=== PATIENT | female | born 1980 | race African-American/Black ===

== ENCOUNTER 2018-08-02 21:28 | Emergency (ER) | payer MEDICAID ==
[~2018-08-02] VITALS: Ht 154.9 cm; Wt 125.0 kg
[2018-08-02 21:36] VITALS: TEMP 99
[2018-08-02] MEDS ORDERED: PROZAC 20MG20 MG PO (22:04)
[2018-08-02] MEDS ORDERED: DESYREL 100MG100 MG PO (22:04)
[2018-08-02] MEDS ORDERED: PRINZIDE 12.5 M1 TAB PO (22:04)
[2018-08-02] MEDS ORDERED: LEVOXYL0.075 MG PO (22:05)
[2018-08-02 22:53] LABS: COLLECTION METHOD CLEAN CATCH
[2018-08-02 22:55] LABS: BASO % 0.2 % (0.0-2.0); EOS # 0.3 (0.0-0.7); EOS % 2.4 % (0-4.0); GRAN # 6.8 (1.4-6.5); GRAN % 65.6 % (42.2-75.2); HEMOGLOBIN 11.2 g/dl (12.5-16.0); LYMPH # 2.8 (1.2-3.4); LYMPH % 26.8 % (20.0-51.0); MEAN CELL VOLUME 84 fl (80.0-100.0); MEAN CORPUSCULAR HEMOGLOBIN 26 pg (27.0-31.0); MEAN CORPUSCULAR HGB CONC 30 g/dl (33.0-37.0); MEAN PLATELET VOLUME 10.5 fl (7.4-10.4); MONO # 0.5 (0.1-0.6); MONO % 4.6 % (1.7-9.3); PLATELET COUNT 247 K/mm3 (130-400); RED BLOOD COUNT 4.36 M/mm3 (4.10-5.30); REDCELL DISTRIBUTION WIDTH-CV 14.4 % (11.5-14.5)
[2018-08-02 22:58] LABS: HEMATOCRIT 36.8 % (37.0-47.0)
[2018-08-02 23:00] LABS: MUCOUS Present /lpf; PH 7 (5-8); SQUAMOUS EPITHELIAL 0-2 /hpf; URINE APPEARANCE Clear; URINE BACTERIA Rare /hpf; URINE BILIRUBIN Negative (NEGATIVE); URINE BLOOD Negative (NEGATIVE); URINE COLOR Yellow; URINE GLUCOSE Negative (NEGATIVE); URINE KETONE Negative (NEGATIVE); URINE LEUKOCYTE ESTERASE Negative (NEGATIVE); URINE NITRATE Negative (NEGATIVE); URINE PROTEIN(semi-quant) Negative (NEGATIVE); URINE RBC 0-2 /hpf; URINE UROBILINOGEN Negative (NEGATIVE)
[2018-08-02 23:05] LABS: ALBUMIN 3.4 gm/dL (3.5-5.0); BILIRUBIN,TOTAL 0.2 mg/dL (0.0-1.0); CALCIUM 8.6 mg/dL (8.4-10.2); CREATININE, serum 0.78 mg/dL (0.52-1.25); POTASSIUM 3.8 mmol/L (3.4-5.0); TOTAL PROTEIN 6.7 gm/dL (6.4-8.2)
[2018-08-03 00:09] VITALS: BP 142/90; PULSE 75
== END 2018-08-03 00:10 | disposition home or self-care (01) ==
LOC: COL.ER 21:28
PROVIDERS: Physician Assistant
DX: M79.7 Fibromyalgia (principal); G43.909 Migraine, unspecified, not intractable, without status migrainosus; I10 Essential (primary) hypertension; E03.9 Hypothyroidism, unspecified; Z88.5 Allergy status to narcotic agent; Z90.49 Acquired absence of other specified parts of digestive tract; Z87.891 Personal history of nicotine dependence; Z88.6 Allergy status to analgesic agent
CPT/HCPCS: J1885

== ENCOUNTER 2018-08-28 18:06 | Emergency (ER) | payer MEDICAID ==
[~2018-08-28] VITALS: Ht 154.9 cm; Wt 114.5 kg
[~2018-08-28 18:06] MED LIST: DESYREL 100MG100 MG PO; LEVOXYL0.075 MG PO; PRINZIDE 12.5 M1 TAB PO; PROZAC 20MG20 MG PO
[2018-08-28 18:16] VITALS: TEMP 97.6
[2018-08-28 19:27] LABS: BASO % 0.2 % (0.0-2.0); EOS # 0.2 (0.0-0.7); EOS % 1.5 % (0-4.0); GRAN # 8.3 (1.4-6.5); GRAN % 65.8 % (42.2-75.2); HEMATOCRIT 40.1 % (37.0-47.0); HEMOGLOBIN 12.3 g/dl (12.5-16.0); LYMPH # 3.4 (1.2-3.4); LYMPH % 27.3 % (20.0-51.0); MEAN CELL VOLUME 83 fl (80.0-100.0); MEAN CORPUSCULAR HEMOGLOBIN 26 pg (27.0-31.0); MEAN CORPUSCULAR HGB CONC 31 g/dl (33.0-37.0); MEAN PLATELET VOLUME 10.8 fl (7.4-10.4); MONO # 0.6 (0.1-0.6); MONO % 4.8 % (1.7-9.3); PLATELET COUNT 257 K/mm3 (130-400); RED BLOOD COUNT 4.83 M/mm3 (4.10-5.30); REDCELL DISTRIBUTION WIDTH-CV 14.2 % (11.5-14.5)
[2018-08-28 19:33] LABS: ALBUMIN 3.6 gm/dL (3.5-5.0); BILIRUBIN,TOTAL 0.5 mg/dL (0.0-1.0); C-REACTIVE PROTEIN 3.6 mg/dL (0.0-0.9); CALCIUM 8.7 mg/dL (8.4-10.2); CREATININE, serum 0.7 mg/dL (0.52-1.25); POTASSIUM 3.7 mmol/L (3.4-5.0); TOTAL PROTEIN 7.3 gm/dL (6.4-8.2)
[2018-08-28 20:20] VITALS: BP 149/95; PULSE 62
== END 2018-08-28 20:22 | disposition home or self-care (01) ==
LOC: COL.ER 18:06
PROVIDERS: Nurse Practitioner
DX: R10.84 Generalized abdominal pain (principal); I10 Essential (primary) hypertension; M79.7 Fibromyalgia; F32.9 Major depressive disorder, single episode, unspecified; Z98.51 Tubal ligation status